=== PATIENT | female | born 1960 | race African-American/Black ===

== ENCOUNTER 2018-09-20 15:33 | Inpatient (IN) | payer MEDICARE, MEDICAID ==
[~2018-09-20] VITALS: Ht 165.1 cm; Wt 93.0 kg
[2018-09-20] MEDS ORDERED: ASPIRIN 81MG TABLET PO ONE (16:45)
[2018-09-20 18:12] LABS: BASOPHILS % 0.7 % (0.0-2.0); EOSINOPHILS % 2.2 % (0.0-5.0); HEMATOCRIT. 39.7 % (36.0-48.0); LYMPHOCYTES % 34.9 % (20.0-50.0); MEAN CORPUSCULAR HEMOGLOBIN 30.1 pg (28.0-32.0); MEAN PLATELET VOLUME 10.3 fl (7.4-10.4); MONOCYTES % 5.9 % (2.0-8.0); NEUTROPHILS % 56.3 % (40.0-76.0); PLATELET 205 x1000/uL (130-400); RED BLOOD CELL COUNT 4.31 mill/uL (4.2-5.4); RED CELL DISTRIBUTION WIDTH 13.6 % (11.6-14.6)
[2018-09-20 18:15] LABS: CHLORIDE 106 mEq/L (98-107)
[2018-09-20] MEDS ORDERED: ZOLPIDEM TARTRATE 5MG TABLET PO PRN (22:15)
[2018-09-20] MEDS ORDERED: ONDANSETRON HCL 4MG/2ML INJ IV PRN (22:15)
[2018-09-20] MEDS ORDERED: CLONIDINE 0.1MG TABLET PO PRN (22:15)
[2018-09-20] MEDS ORDERED: MAGNESIUM/ALUMINUM HYDROXIDE/SIMETHICONE 30ML UDC PO PRN (22:15)
[2018-09-20] MEDS ORDERED: ACETAMINOPHEN 325MG TABLET PO PRN (22:15)
[2018-09-20] MEDS ORDERED: DOCUSATE SODIUM 100MG CAPSULE PO PRN (22:15)
[2018-09-20] MEDS ORDERED: NITROGLYCERIN 0.4MG TABLET SL SL PRN (22:15)
[2018-09-20] MEDS ORDERED: IPRATROPIUM/ALBUTEROL 0.5-3(2.5)MG/3ML NEB INH PRN (22:15)
[2018-09-20] MEDS ORDERED: GUAIFENESIN 200MG/10ML SUGAR FREE UDC PO PRN (22:15)
[2018-09-20] MEDS ORDERED: TRAMADOL 50MG TABLET PO PRN (23:20)
[2018-09-20] MEDS ORDERED: MORPHINE SULFATE 4 MG/ML CPJ (NOT FOR IM USE) IV PRN (23:30)
[2018-09-21] VITALS: BP 140/59
[2018-09-21] MEDS: BUTALBITAL/ACETAMINOPHEN/CAFFEINE 50/325/40MG TABLET PO PRN ×2 (00:06→09:54)
[2018-09-21 00:07] VITALS: BP 140/59
[2018-09-21] MEDS ORDERED: ALBU18HF2 IH (01:00)
[2018-09-21] MEDS ORDERED: PRAV10TA35 PO (01:00)
[2018-09-21] MEDS ORDERED: BUDE90AE INH (01:00)
[2018-09-21] MEDS ORDERED: TIOT18CA3 IH (01:00)
[2018-09-21] MEDS ORDERED: MONT10TA21 PO (01:00)
[2018-09-21 02:20] LABS: *AMPHETAMINES SCREEN URINE NEGATIVE (NEGATIVE); *BARBITURATES SCREEN URINE NEGATIVE (NEGATIVE); *BENZODIAZEPINES SCREEN URINE NEGATIVE (NEGATIVE)
[2018-09-21 02:21] LABS: *COCAINE SCREEN URINE NEGATIVE (NEGATIVE); CANNABINOID URINE SCREEN NEGATIVE (NEGATIVE); METHADONE URINE SCREEN NEGATIVE (NEGATIVE); OPIATES URINE SCREEN NEGATIVE (NEGATIVE); PHENCYCLIDINE URINE SCREEN NEGATIVE (NEGATIVE)
[2018-09-21 04:00] VITALS: BP 104/62
[2018-09-21 07:42] LABS: CREATINE KINASE 245 IU/L (26-192)
[2018-09-21 07:45] LABS: CREATINE KINASE MB FRACTION 1.4 ng/mL (0.5-3.6)
[2018-09-21 08:00] VITALS: BP 121/75
[2018-09-21] MEDS ORDERED: FAMOTIDINE 20MG TABLET PO SCH (09:00)
[2018-09-21] MEDS ORDERED: ASPIRIN 325MG EC TABLET PO SCH (09:00)
[2018-09-21] MEDS ORDERED: METOPROLOL TARTRATE 25MG TABLET PO SCH (09:00)
[2018-09-21] MEDS ORDERED: ENOXAPARIN 40MG/0.4ML SYR SUBCUT SCH (09:00)
[2018-09-21 14:52] VITALS: BP 119/67
[2018-09-21 15:09] LABS: CREATINE KINASE 254 IU/L (26-192)
== END 2018-09-21 17:07 | disposition home or self-care (01) | DRG 103 ==
LOC: ER 15:33 → 5WST 22:11 → SUPCPDRO 22:18 → ENRESERV 23:16
PROVIDERS: ADMIT Internal Medicine; ATTEND Internal Medicine
DX: G43.909 Migraine, unspecified, not intractable, without status migrainosus (principal); J45.909 Unspecified asthma, uncomplicated; I10 Essential (primary) hypertension; R07.89 Other chest pain; E66.9 Obesity, unspecified; Z60.2 Problems related to living alone; Z79.899 Other long term (current) drug therapy; Z68.34 Body mass index [BMI] 34.0-34.9, adult
CPT/HCPCS: 36415; 71045; 80061; 80305; 82550; 82553; 83036; 84484; 93005; 93306; 99285; J1650